=== PATIENT | female | born 1990 | race Caucasian/White ===

== ENCOUNTER 2016-09-03 09:18 | Emergency (ER) | payer OTHER ==
[2016-09-03 09:28] VITALS: RESP 15
--- NOTE | 2016-09-03 09:43 | ED ---
General Adult HPI - General Chief complaint: Urogenital Stated complaint: ovary pain Time Seen by Provider: 09/03/16 09:29 Source: patient, RN notes reviewed Mode of arrival: ambulatory Limitations: no limitations - History of Present Illness Initial comments: Patient 26-year-old female who presents emergency room today with a chief complaint of lower pelvic pain that started approximately 2 hours ago. She states she woke up she was getting up moving around she began feeling increased "ovary pain". She states it wraps around to her back bilaterally. Reminds her of labor pains. She states she is not that she knows of. She states she had a normal menstrual cycle approximately a week ago. Denies any vaginal bleeding or discharge at this time. States pain has improved on its own without any medications. Currently rates 4/5. Patient denies any recent fever, chills, shortness of breath, chest pain, back pain, nausea or vomiting, numbness or tingling, dysuria or hematuria, constipation or diarrhea, headaches or visual changes, or any other complaints. - Related Data Home Medications Medication Instructions Recorded Confirmed Multivitamins, Thera [Multivitamin 1 tab PO DAILY 09/03/16 09/03/16 (formulary)] Allergies Allergy/AdvReac Type Severity Reaction Status Date / Time cephalexin [From Keflex] Allergy Rash/Hives Verified 09/03/16 10:54 Review of Systems ROS Statement: Those systems with pertinent positive or pertinent negative responses have been documented in the HPI. ROS Other: All systems not noted in ROS Statement are negative. Past Medical History Past Medical History: No Reported History History of Any Multi-Drug Resistant Organisms: None Reported Past Surgical History: Appendectomy Past Psychological History: No Psychological Hx Reported Smoking Status: Never smoker Past Alcohol Use History: None Reported Past Drug Use History: None Reported General Exam - General Exam Comments Initial Comments: General: The patient is awake and alert, in no distress, and does not appear acutely ill. Eye: Pupils are equal, round and reactive to light, extra-ocular movements are intact. No nystagmus. There is normal conjunctiva bilaterally. No signs of icterus. Ears, nose, mouth and throat: There are moist mucous membranes and no oral lesions. Neck: The neck is supple, there is no tenderness or JVD. Cardiovascular: There is a regular rate and rhythm. No murmur, rub or gallop is appreciated. Respiratory: Lungs are clear to auscultation, respirations are non-labored, breath sounds are equal. No wheezes, stridor, rales, or rhonchi. Gastrointestinal: Soft, non-distended, without masses or organomegaly noted. Mild tenderness in the left lower quadrant. There is no rebound or guarding present. No CVA tenderness. Bowel sounds are unremarkable. Musculoskeletal: Normal ROM, no tenderness. Strength 5/5. Sensation intact. Pulses equal bilaterally 2+. Neurological: A&O x 3. CN II-XII intact, There are no obvious motor or sensory deficits. Coordination appears grossly intact. Speech is normal. Skin: Skin is warm and dry and no rashes or lesions are noted. Psychiatric: Cooperative, appropriate mood & affect, normal judgment. Limitations: no limitations Course Vital Signs 09/03/16 09:21 Temperature 98.0 F Pulse Rate 91 Respiratory 15 Rate Blood Pressure 101/73 O2 Sat by Pulse 97 Oximetry Medical Decision Making - Medical Decision Making Patient reexamined at this time shows no signs of distress. His ultrasound shows no acute abnormalities. Patient's labs unremarkable. Patient resting comfortable has not needed pain medicine here the emergency room currently rates a 4/5. She does provide further information stating that she does have some adjustment issues with her hips and had pain recently in her back. She states that this time the pain is radiating more to the back tenderness to the abdomen and is wondering if this is associated. She states she does have an appointment with her chiropractor this afternoon. Options were discussed with patient about a pelvic exam and further workup for STDs. She states she is not worried about any STDs and has declined pelvic here in the emergency room. Patient will be discharged home advised use ibuprofen as needed for pain and follow-up with her [facility]. Advised return if any symptoms increase or worsen or for any other concerns. - Lab Data Result diagrams: 09/03/16 09:51 09/03/16 09:51 Lab Results 09/03/16 09/03/16 09/03/16 Range/Units 09:51 09:51 09:51 WBC 4.7 (3.8-10.6) k/uL RBC 4.96 (3.80-5.40) m/uL Hgb 14.7 (11.4-16.0) gm/dL Hct 41.0 (34.0-46.0) % MCV 82.6 (80.0-100.0) fL MCH 29.5 (25.0-35.0) pg MCHC 35.8 (31.0-37.0) g/dL RDW 12.4 (11.5-15.5) % Plt Count 303 (150-450) k/uL Neutrophils % 58 % Lymphocytes % 31 % Monocytes % 7 % Eosinophils % 2 % Basophils % 1 % Neutrophils # 2.7 (1.3-7.7) k/uL Lymphocytes # 1.5 (1.0-4.8) k/uL Monocytes # 0.3 (0-1.0) k/uL Eosinophils # 0.1 (0-0.7) k/uL Basophils # 0.0 (0-0.2) k/uL Sodium (137-145) mmol/L Potassium (3.5-5.1) mmol/L Chloride (98-107) mmol/L Carbon Dioxide (22-30) mmol/L Anion Gap mmol/L BUN (7-17) mg/dL Creatinine (0.52-1.04) mg/dL Est GFR (MDRD) Af Amer (>60 ml/min/1.73 sqM) Est GFR (MDRD) Non-Af (>60 ml/min/1.73 sqM) Glucose (74-99) mg/dL Calcium (8.4-10.2) mg/dL Total Bilirubin (0.2-1.3) mg/dL AST (14-36) U/L ALT (9-52) U/L Alkaline Phosphatase (38-126) U/L Total Protein (6.3-8.2) g/dL Albumin (3.5-5.0) g/dL Urine Color Light Yellow Urine Appearance Clear (Clear) Urine pH 7.0 (5.0-8.0) Ur Specific [place] 1.014 (1.001-1.035) Urine Protein Negative (Negative) Urine Glucose (UA) Negative (Negative) Urine Ketones Negative (Negative) Urine Blood Negative (Negative) Urine Nitrite Negative (Negative) Urine Bilirubin Negative (Negative) Urine Urobilinogen <2.0 (<2.0) mg/dL Ur Leukocyte Esterase Moderate H (Negative) Urine WBC 1 (0-5) /hpf Ur Squamous Epith Cells 4 (0-4) /hpf Urine Bacteria Rare H (None) /hpf Urine Mucus Rare H (None) /hpf Urine HCG, Qual Not Detected (Not Detectd) 09/03/16 Range/Units 09:51 WBC (3.8-10.6) k/uL RBC (3.80-5.40) m/uL Hgb (11.4-16.0) gm/dL Hct (34.0-46.0) % MCV (80.0-100.0) fL MCH (25.0-35.0) pg MCHC (31.0-37.0) g/dL RDW (11.5-15.5) % Plt Count (150-450) k/uL Neutrophils % % Lymphocytes % % Monocytes % % Eosinophils % % Basophils % % Neutrophils # (1.3-7.7) k/uL Lymphocytes # (1.0-4.8) k/uL Monocytes # (0-1.0) k/uL Eosinophils # (0-0.7) k/uL Basophils # (0-0.2) k/uL Sodium 141 (137-145) mmol/L Potassium 4.1 (3.5-5.1) mmol/L Chloride 104 (98-107) mmol/L Carbon Dioxide 26 (22-30) mmol/L Anion Gap 11 mmol/L BUN 15 (7-17) mg/dL Creatinine 0.52 (0.52-1.04) mg/dL Est GFR (MDRD) Af Amer >60 (>60 ml/min/1.73 sqM) Est GFR (MDRD) Non-Af >60 (>60 ml/min/1.73 sqM) Glucose 84 (74-99) mg/dL Calcium 9.9 (8.4-10.2) mg/dL Total Bilirubin 0.8 (0.2-1.3) mg/dL AST 21 (14-36) U/L ALT 27 (9-52) U/L Alkaline Phosphatase 58 (38-126) U/L Total Protein 8.0 (6.3-8.2) g/dL Albumin 4.8 (3.5-5.0) g/dL Urine Color Urine Appearance (Clear) Urine pH (5.0-8.0) Ur Specific [place] (1.001-1.035) Urine Protein (Negative) Urine Glucose (UA) (Negative) Urine Ketones (Negative) Urine Blood (Negative) Urine Nitrite (Negative) Urine Bilirubin (Negative) Urine Urobilinogen (<2.0) mg/dL Ur Leukocyte Esterase (Negative) Urine WBC (0-5) /hpf Ur Squamous Epith Cells (0-4) /hpf Urine Bacteria (None) /hpf Urine Mucus (None) /hpf Urine HCG, Qual (Not Detectd) Disposition Clinical Impression: Abdominal pain Disposition: HOME SELF-CARE Condition: Good Instructions: Abdominal Pain (ED) Additional Instructions: Please use ibuprofen as discussed. Please follow-up with [facility]/family doctor in the next 2 days of symptoms have not improved. Please return to emergency room if the symptoms increase or worsen or for any other concerns. Referrals: Ernesto Pittman DO [Primary Care Provider] - 1-2 days Time of Disposition: 11:04
[2016-09-03] MEDS: SODIUM CHLORIDE 0.9% 1,000 ML IV STA (09:51)
[2016-09-03 10:12] LABS: Appearance,Urine Clear (Clear); Bacteria,Urine Rare /hpf; Bilirubin,Urine Negative (Negative); Glucose,Urine (UA) Negative (Negative); Ketones,Urine Negative (Negative); Leukocyte Esterase,Urine Moderate (Negative); Mucus,Urine Rare /hpf; Nitrite,Urine Negative (Negative); Particle Count 3351; Protein,Urine Negative (Negative); Specific Gravity,Urine 1.014 (1.001-1.035); Squamous Epithelial Cell,Urine 4 /hpf (0-4); UA Billing (MACRO vs. MICRO) MICRO; Urobilinogen,Urine <2.0 mg/dL (<2.0); WBC,Urine 1 /hpf (0-5)
[2016-09-03 10:14] LABS: Basophils % (A) 1 %; CH 29.4; CHCM 35.7; Eosinophils # (A) 0.1 k/uL (0-0.7); Eosinophils % (A) 2 %; HDW 2.61; HGB 14.7 gm/dL (11.4-16.0); Luc # (Auto) 0.11; Luc % (Auto) 2; Lymphocytes # (A) 1.5 k/uL (1.0-4.8); Lymphocytes % (A) 31 %; MCH 29.5 pg (25.0-35.0); MCHC 35.8 g/dL (31.0-37.0); MCV 82.6 fL (80.0-100.0); Mean Platelet Volume 6.8; Monocytes # (A) 0.3 k/uL (0-1.0); Monocytes % (A) 7 %; Neutrophils # (A) 2.7 k/uL (1.3-7.7); Neutrophils % (A) 58 %; RBC 4.96 m/uL (3.80-5.40); RDW 12.4 % (11.5-15.5); WBC 4.7 k/uL (3.8-10.6); WBC (Perox) 4.49
[2016-09-03 10:31] LABS: ALT 27 U/L (9-52); AST 21 U/L (14-36); Alkaline Phosphatase 58 U/L (38-126); Anion Gap 11 mmol/L; Blood Urea Nitrogen 15 mg/dL (7-17); Calcium 9.9 mg/dL (8.4-10.2); Carbon Dioxide 26 mmol/L (22-30); Chloride 104 mmol/L (98-107); Glucose 84 mg/dL (74-99); Non-African American GFR(MDRD) >60 (>60 ml/min/1.73 sqM); Potassium 4.1 mmol/L (3.5-5.1); Sodium 141 mmol/L (137-145); Total Bilirubin 0.8 mg/dL (0.2-1.3)
--- NOTE | 2016-09-03 10:49 | US ---
EXAMINATION TYPE: US transvaginal DATE OF EXAM: 09/03/2016 COMPARISON: NONE CLINICAL HISTORY: bilateral pelvic pain that was worse this morning and has somewhat subsided. TECHNIQUE: Transvaginal (TV) Date of LMP: 08/14/16 EXAM MEASUREMENTS: Uterus: 8.7 x 4.5 x 5.8 cm Endometrial Stripe: 1.2 cm Right Ovary: 3.1 x 2.3 x 2.3 cm Left Ovary: 2.0 x 2.0 x 2.2 cm 1. Uterus: Anteverted, patient had one previous and has no knowledge of bicornuate uterus, however transverse images appear this way 2. Endometrium: wnl 3. Right Ovary: small amount of ff adjacent to ovary, 1 cm dominant follicle or small ovarian cyst n oted 4. Left Ovary: wnl Spectral, color and waveform doppler imaging shows good arterial and venous flow within the ovaries ; there is no evidence for ovarian torsion. 5. Bilateral Adnexa: wnl 6. Posterior cul-de-sac: wnl IMPRESSION: 1. 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 2. Incidental note made of a small amount of fluid adjacent to the right ovary with a 1 cm right sahil nant follicle or small ovarian cyst.
[2016-09-03 11:43] VITALS: BP 115/57; PULSE 80; TEMP 98.2
== END 2016-09-03 11:52 | disposition home or self-care (01) ==
LOC: EC 09:18
DX: R10.2 Pelvic and perineal pain (principal); M54.5 Low back pain; Z79.899 Other long term (current) drug therapy; Z88.1 Allergy status to other antibiotic agents; Z90.49 Acquired absence of other specified parts of digestive tract
CPT/HCPCS: 36415; 76830; 80053; 81001; 81025; 85025; 93975; 96360; 96361; 99284

== ENCOUNTER → 2019-10-27 | Outpatient (CLI) | payer OTHER ==
--- NOTE | 2019-10-27 13:38 | US ---
EXAMINATION TYPE: Transabdominal DATE OF EXAM: 10/27/2019 1:30 PM COMPARISON: NONE CLINICAL HISTORY: R68.89 CRAMPING. Pt states cramping x 1 week EXAM PERFORMED: Transabdominal (TA) EXAM MEASUREMENTS: GESTATIONAL AGE / DATING Physician Established: Not yet established Dates by LMP: (8 weeks/6 days) EDC: 06/01/2020 Dates by First Scan: No prior Dates by Current Scan for: (9 weeks/1 days) EDC: 05/30/2020 MATERNAL ANATOMY Uterus: 11.1 x 6.3 x 7.7 cm Right Ovary: 3.0 x 1.5 x 2.0 cm Left Ovary: 3.4 x 2.1 x 3.1 cm Post CDS / Adnexa: wnl Presence of free fluid: No Presence of corpus luteal cyst: Left Ovary= 2.3 x 1.8 x 1.9 cm Presence of subchorionic bleed: No GESTATION / SURVEY CRL: 2.3 cm (9 weeks/1 days) MSD: wnl Yolk Sac (normal less than 6mm): 3mm Heart Rate: 172 bpm Rhythm: Normal IUP: Viable IUP Date of LMP: 08/26/2019 IMPRESSION: Viable 9 weeks 1 day with a heart rate 172 bpm.
== END | disposition home or self-care (01) ==
LOC: RADUSWWP 12:41
PROVIDERS: ATTEND Obstetrics & Gynecology
DX: R68.89 Other general symptoms and signs (principal); Z3A.09 9 weeks gestation of pregnancy
CPT/HCPCS: 76801

== ENCOUNTER 2019-12-01 17:20 | Emergency (ER) | payer OTHER ==
[2019-12-01 17:39] VITALS: BP 105/72; PULSE 82; RESP 18; TEMP 98.5
[2019-12-01 18:35] LABS: Appearance,Urine Clear (Clear); Bilirubin,Urine Negative (Negative); Blood,Urine Negative (Negative); Color,Urine Light Yellow; Glucose,Urine (UA) Negative (Negative); Ketones,Urine 1+ (Negative); Leukocyte Esterase,Urine Small (Negative); Mucus,Urine Rare /hpf; Nitrite,Urine Negative (Negative); PH, Urine 8.5 (5.0-8.0); Protein,Urine 1+ (Negative); RBC,Urine 2 /hpf (0-5); Specific Gravity,Urine 1.013 (1.001-1.035); Squamous Epithelial Cell,Urine 6 /hpf (0-4); Urobilinogen,Urine <2.0 mg/dL (<2.0); WBC,Urine 26 /hpf (0-5)
--- NOTE | 2019-12-01 18:41 | ED ---
Female Urogenital HPI - General Chief complaint: Urogenital Stated complaint: 14wks preg/uti Time Seen by Provider: 12/01/19 17:44 Source: patient, family, RN notes reviewed Mode of arrival: ambulatory Limitations: no limitations - History of Present Illness Initial comments: 29-year-old female presents emergency Department chief complaint of dysuria. Patient states that this started today. Patient states it hurts every time she urinates. Denies any vaginal bleeding or vaginal discharge. Patient is 14 weeks patient has a follow-up with her [facility] Dr. Maria. Patient denies any fevers or chills no flank pain no hematuria noted. - Related Data Home Medications Medication Instructions Recorded Confirmed Multivitamins, Thera [Multivitamin 1 tab PO DAILY 09/03/16 09/03/16 (formulary)] Previous Rx's Medication Instructions Recorded Nitrofurantoin Monohyd/M-Cryst 100 mg PO Q12HR #14 cap 12/01/19 [Macrobid] Allergies Allergy/AdvReac Type Severity Reaction Status Date / Time cephalexin [From Keflex] Allergy Rash/Hives Verified 12/01/19 17:38 Review of Systems ROS Statement: Those systems with pertinent positive or pertinent negative responses have been documented in the HPI. ROS Other: All systems not noted in ROS Statement are negative. Past Medical History Past Medical History: No Reported History History of Any Multi-Drug Resistant Organisms: None Reported Past Surgical History: Appendectomy Past Psychological History: No Psychological Hx Reported Smoking Status: Never smoker Past Alcohol Use History: None Reported Past Drug Use History: None Reported General Exam General appearance: alert, in no apparent distress Head exam: Present: atraumatic, normocephalic, normal inspection Respiratory exam: Present: normal lung sounds bilaterally. Absent: respiratory distress, wheezes, rales, rhonchi, stridor Cardiovascular Exam: Present: regular rate, normal rhythm, normal heart sounds. Absent: systolic murmur, diastolic murmur, rubs, gallop, clicks GI/Abdominal exam: Present: soft, normal bowel sounds. Absent: distended, tenderness, guarding, rebound, rigid Back exam: Absent: CVA tenderness (R), CVA tenderness (L) Course Vital Signs 12/01/19 17:34 Temperature 98.5 F Pulse Rate 82 Respiratory 18 Rate Blood Pressure 105/72 O2 Sat by Pulse 100 Oximetry Medical Decision Making - Medical Decision Making Patient has evidence of urinary tract infection. Patient we discharged on antibiotics. She is advised to contact her [facility] for close follow-up return parameters were discussed. - Lab Data Lab Results 12/01/19 Range/Units 17:47 Urine Color Light Yellow Urine Appearance Clear (Clear) Urine pH 8.5 H (5.0-8.0) Ur Specific [place] 1.013 (1.001-1.035) Urine Protein 1+ H (Negative) Urine Glucose (UA) Negative (Negative) Urine Ketones 1+ H (Negative) Urine Blood Negative (Negative) Urine Nitrite Negative (Negative) Urine Bilirubin Negative (Negative) Urine Urobilinogen <2.0 (<2.0) mg/dL Ur Leukocyte Esterase Small H (Negative) Urine RBC 2 (0-5) /hpf Urine WBC 26 H (0-5) /hpf Ur Squamous Epith Cells 6 H (0-4) /hpf Urine Mucus Rare H (None) /hpf Disposition Clinical Impression: Urinary tract infection Disposition: HOME SELF-CARE Condition: Stable Instructions (If sedation given, give patient instructions): Urinary Tract Infection in (ED) Additional Instructions: Please return to the Emergency Department if symptoms worsen or any other concerns. Prescriptions: Nitrofurantoin Monohyd/M-Cryst [Macrobid] 100 mg PO Q12HR #14 cap Is patient prescribed a controlled substance at d/c from ED?: No Referrals: Ernesto Pittman DO [Primary Care Provider] - 1-2 days Time of Disposition: 18:38
== END 2019-12-01 19:09 | disposition home or self-care (01) ==
LOC: EC 17:20
DX: O23.42 Unspecified infection of urinary tract in pregnancy, second trimester (principal); Z88.1 Allergy status to other antibiotic agents; Z3A.14 14 weeks gestation of pregnancy
CPT/HCPCS: 81001; 87086; 99283

== ENCOUNTER 2020-06-05 06:02 | Inpatient (IN) | payer BC, OTHER ==
[2020-06-05] MEDS ORDERED: CARBOPROST TROMETHAMINE 250 MCG/ML 1 ML AMP IM PRN (06:26)
[2020-06-05] MEDS ORDERED: LIDOCAINE 0.5% (PF) 5 MG/ML (50 ML SDV) SQ PRN (06:26)
[2020-06-05] MEDS ORDERED: OXYTOCIN 10 UNIT/ML 1 ML VIAL IM PRN (06:26)
[2020-06-05] MEDS ORDERED: TERBUTALINE 1 MG/ML VIAL SQ PRN (06:26)
[2020-06-05] MEDS ORDERED: METHYLERGONOVINE 0.2 MG/ML 1 ML AMP IM PRN (06:26)
[2020-06-05] MEDS ORDERED: OXYTOCIN 30 UNITS/500 ML NS 30 UNIT in SALINE 1 500ML.BAG IV SCH (06:30)
[2020-06-05 06:50] LABS: Basophils % (A) 0 %; Eosinophils # (A) 0.1 k/uL (0-0.7); Eosinophils % (A) 1 %; HGB 11.8 gm/dL (11.4-16.0); Lymphocytes # (A) 1.5 k/uL (1.0-4.8); Lymphocytes % (A) 15 %; MCH 28.5 pg (25.0-35.0); MCHC 33.6 g/dL (31.0-37.0); MCV 84.6 fL (80.0-100.0); Mean Platelet Volume 8.3; Monocytes # (A) 0.8 k/uL (0-1.0); Monocytes % (A) 8 %; Neutrophils # (A) 7.7 k/uL (1.3-7.7); Neutrophils % (A) 76 %; Platelet Count 253 k/uL (150-450); RBC 4.14 m/uL (3.80-5.40); RDW 14.2 % (11.5-15.5); WBC 10.2 k/uL (3.8-10.6)
[2020-06-05] MEDS: LACTATED RINGERS 1,000 ML IV SCH (07:07)
[2020-06-05] MEDS ORDERED: BUTORPHANOL 1 MG/ML 1 ML VIAL IV PRN (07:42)
[2020-06-05] MEDS ORDERED: BENZOCAINE/MENTHOL SPRAY 1 GM/SPRAY AEROSOL TOPICAL PRN (12:56)
[2020-06-05] MEDS ORDERED: LANOLIN CREAM 5 GM TUBE TOPICAL PRN (12:56)
[2020-06-05] MEDS ORDERED: diphenhydrAMINE 25 MG CAP PO PRN (12:56)
[2020-06-05] MEDS ORDERED: ZOLPIDEM 5 MG TAB PO PRN (12:56)
[2020-06-05] MEDS ORDERED: SIMETHICONE 80 MG CHEWABLE PO PRN (12:56)
[2020-06-05] MEDS ORDERED: ACETAMINOPHEN TAB 325 MG TAB PO PRN (12:56)
[2020-06-05] MEDS ORDERED: HYDROCORTISONE 2.5% RECTAL CREAM 30 GM TUBE RECTAL PRN (12:56)
[2020-06-05] MEDS ORDERED: diphenhydrAMINE 50 MG/ML 1 ML VIAL IVP PRN ×2 (12:56)
[2020-06-05] MEDS ORDERED: diphenhydrAMINE 50 MG CAP PO PRN (12:56)
[2020-06-05] MEDS: IBUPROFEN 600 MG TAB PO SCH ×2 (13:37→20:59)
[2020-06-05 14:28] VITALS: RESP 16
[2020-06-05] MEDS: SENNOSIDES-DOCUSATE SODIUM 1 EACH TAB PO SCH (20:59)
[2020-06-06] MEDS: LACTATED RINGERS 1,000 ML IV SCH (01:12)
[2020-06-06] MEDS: IBUPROFEN 600 MG TAB PO SCH ×3 (03:32→15:13)
[2020-06-06 07:27] VITALS: BP 97/56; PULSE 81; TEMP 98
[2020-06-06] MEDS: SENNOSIDES-DOCUSATE SODIUM 1 EACH TAB PO SCH (07:29)
--- NOTE | 2020-06-06 08:09 | P.HPOB ---
History of Present Illness H&P Date: 06/05/20 Chief Complaint: INduction of labor 30-year-old presents at 40 weeks and 4 days for induction of labor. Her cervix was 2 cm dilated, 70% effaced, and -2 station. She is adilson irregularly. heart tones 135 with moderate variability and reactive. Review of Systems All systems: negative Constitutional: Denies chills, Denies fever Eyes: denies blurred vision, denies pain Ears, nose, mouth and throat: Denies headache, Denies sore throat Cardiovascular: Denies chest pain, Denies shortness of breath Respiratory: Denies cough Gastrointestinal: Denies abdominal pain, Denies diarrhea, Denies nausea, Denies vomiting Genitourinary: Denies dysuria, Denies hematuria Musculoskeletal: Denies myalgias Integumentary: Denies pruritus, Denies rash Neurological: Denies numbness, Denies weakness Psychiatric: Denies anxiety, Denies depression Endocrine: Denies fatigue, Denies weight change Past Medical History Past Medical History: No Reported History Additional Past Medical History / Comment(s): Obstetric history: She has had 2 previous vaginal deliveries. Blood type is B+, amylase negative, rubella nonimmune, hepatitis B negative, GBS negative, HIV nonreactive. History of Any Multi-Drug Resistant Organisms: None Reported Past Surgical History: Appendectomy Past Anesthesia/Blood Transfusion Reactions: No Reported Reaction Past Psychological History: No Psychological Hx Reported Smoking Status: Never smoker Past Alcohol Use History: None Reported Past Drug Use History: None Reported - Past Family History Father Family Medical History: No Reported History Medications and Allergies Home Medications Medication Instructions Recorded Confirmed Type Multivitamins, Thera [Multivitamin 1 tab PO DAILY 09/03/16 06/05/20 History (formulary)] Allergies Allergy/AdvReac Type Severity Reaction Status Date / Time cephalexin [From Keflex] Allergy Rash/Hives Verified 06/05/20 06:26 Exam Osteopathic Statement: *. No significant issues noted on an osteopathic structural exam other than those noted in the History and Physical/Consult. Vital Signs Temp Pulse Resp BP Pulse Ox 06/06/20 07:27 98.0 F 81 16 97/56 06/06/20 04:00 98.4 F 70 16 95/54 97 06/06/20 00:00 98.3 F 70 16 102/61 98 06/05/20 20:00 98.1 F 86 16 110/56 97 06/05/20 16:00 96.8 F L 70 16 98/58 98 06/05/20 13:50 96.7 F L 78 16 114/57 99 06/05/20 13:20 88 18 94/60 99 06/05/20 12:50 70 16 98/54 99 06/05/20 12:35 72 17 92/51 98 06/05/20 12:20 71 16 89/54 98 06/05/20 12:05 93 16 89/59 99 06/05/20 11:50 96.7 F L 86 18 93/57 99 Intake and Output 06/05/20 06/06/20 06/06/20 22:59 06:59 14:59 Intake Total 600 Balance 600 Intake: Oral 600 Other: # Voids 1 1 2 Heart: Regular rate and rhythm Lungs: Clear to auscultation bilaterally Abdomen: Soft, nontender Extremities: Negative Homans sign Results Result Diagrams: 06/05/20 06:36 Assessment and Plan (1) Encounter for elective induction of labor Current Visit: Yes Status: Acute Code(s): Z34.90 - ENCNTR FOR SUPRVSN OF NORMAL , UNSP, UNSP TRIMESTER SNOMED Code(s): 152475651 Plan: 1. Induction of labor with amniotomy and Pitocin 2. Anticipate normal vaginal delivery
--- NOTE | 2020-06-06 08:10 | P.PROBDLV ---
Vaginal Delivery Note - . Vaginal Delivery Note: 30-year-old presents at 40 weeks and 4 days for induction of labor. Her cervix was 2 cm dilated, 70% effaced, and -2 station. She is adilson irregularly. heart tones 135 with moderate variability and reactive. Pitocin was started. Amniotomy performed at 6:50 AM and clear fluid noted. Her cervix progressed to complete by 11:25 AM. She pushed, delivered a viable male infant over intact perineum under epidural anesthesia at 11:41 AM. Head delive red OA, nuchal cord 1 easily reduced, anterior shoulder delivered gentle downward guidance followed by posterior shoulder and rest of body. Nose and mouth bulb suctioned, cord clamped and cut, infant placed mother's abdomen. Apgars 8, 9, weight 9 lbs. 4 oz. Placenta delivered spontaneously, intact with three-vessel cord at 11:43 AM. Vagina, cervix, perineum inspected. No lacerations noted. Estimated blood loss 150 mL. Mother and baby in stable condition.
--- NOTE | 2020-06-06 08:12 | P.DS ---
Providers Date of admission: 06/05/20 06:02 Expected date of discharge: 06/06/20 Attending physician: Sherry Maria Primary care physician: Stated None - Discharge Diagnosis(es) (1) Encounter for elective induction of labor Current Visit: Yes Status: Resolved (2) Normal vaginal delivery Current Visit: Yes Status: Acute Hospital Course: Patient presented for induction of labor. She underwent a normal vaginal delivery. Her course uncomplicated. Denies nausea, vomiting, chest pain, shortness of breath or calf pain. Her lochia is decreasing. She'll be discharged home day #1 in stable condition to follow-up with me in 6 weeks. Plan - Discharge Summary New Discharge Prescriptions: New Ibuprofen [Motrin] 600 mg PO Q6HR PRN #30 tab PRN Reason: Mild Pain Or Fever >= 100.5 No Action Multivitamins, Thera [Multivitamin (formulary)] 1 tab PO DAILY Discharge Medication List Multivitamins, Thera [Multivitamin (formulary)] 1 tab PO DAILY 09/03/16 [History] Ibuprofen [Motrin] 600 mg PO Q6HR PRN #30 tab 06/06/20 [Rx] Follow up Appointment(s)/Referral(s): Sherry Maria DO [Doctor of Osteopathic Medicine] - 6 Weeks Discharge Disposition: HOME SELF-CARE
== END 2020-06-06 15:30 | disposition home or self-care (01) | DRG 807 ==
LOC: 4FBP 06:02
PROVIDERS: ADMIT Obstetrics & Gynecology; ATTEND Obstetrics & Gynecology
PROC: 10E0XZZ Delivery of Products of Conception, External Approach (ICD-10-PCS; principal; 2020-06-05)
PROC: 3E033VJ Introduction of Other Hormone into Peripheral Vein, Percutaneous Approach (ICD-10-PCS; 2020-06-05)
DX: O69.81X0 Labor and delivery complicated by cord around neck, without compression, not applicable or unspecified (principal); Z37.0 Single live birth; Z3A.40 40 weeks gestation of pregnancy
CPT/HCPCS: 85025; 86850; 86900; 86901

== ENCOUNTER 2021-12-26 17:48 | Outpatient (CLI) | payer BC, OTHER ==
[2021-12-26 18:20] LABS: Appearance,Urine Clear (Clear); Bacteria,Urine Many /hpf; Bilirubin,Urine Negative (Negative); Blood,Urine Negative (Negative); Budding Yeast,Urine Occasional /hpf; Color,Urine Colorless; Glucose,Urine (UA) Negative (Negative); Hyaline Casts,Urine 1 /lpf (0-2); Ketones,Urine Negative (Negative); Leukocyte Esterase,Urine Small (Negative); Nitrite,Urine Negative (Negative); PH, Urine 7.5 (5.0-8.0); Protein,Urine Negative (Negative); RBC,Urine <1 /hpf (0-5); Specific Gravity,Urine 1.006 (1.001-1.035); Squamous Epithelial Cell,Urine 4 /hpf (0-4); Urobilinogen,Urine <2.0 mg/dL (<2.0); WBC,Urine 2 /hpf (0-5)
[2021-12-26 19:26] VITALS: BP 112/69; PULSE 93; RESP 16; TEMP 98.1
--- NOTE | 2021-12-27 17:35 | P.MSEPDOC ---
Presenting Problems - Arrival Data Date of Arrival on Unit: 12/26/21 Time of Arrival on Unit: 19:10 Mode of Transport: Ambulatory - Complaint OB-Reason for Admission/Chief Complaint: Pain Comment: pain in back lower for 2 days. last couple hours radiating to mid abd. hx of labor. wanted to make sure it was not labor Medical History - Information : 6 Para: 3 Term: 3 Abortions: Spontaneous or Elective: 2 Number of Living Children: 3 - Gestational Age Gestational Age by DARREL (wks/days): 32 Weeks and 6 Days Review of Systems - Review of Systems Constitutional: No problems Breast: No problems ENT: No problems Cardiovascular: No problems Respiratory: No problems Gastrointestinal: No problems Genitourinary: No problems Musculoskeletal: No problems Neurological: No problems Skin: No problems Vital Signs - Temperature Temperature: 98.1 F Temperature Source: Oral - Pulse Radial Pulse Rate: 93 Pulse Assessment Method: Automatic Cuff - Respirations Respiratory Rate: 16 Oxygen Delivery Method: Room Air O2 Sat by Pulse Oximetry: 99 - Blood Pressure Right Arm Blood Pressure: 112/69 Blood Pressure Mean: 83 Blood Pressure Source: Automatic Cuff Medical Screen Scoring - Cervical Exam Dilation (cm): 0 Effacement (%): 0 Membranes: Intact - Uterine Contractions Intensity: Absent - Assessment - Baby A Baseline FHR: 130 Heart Rate - NICHD Category: Category I (Normal) NST: Reactive Physician Notification - Physician Notified Physician Notified Date: 12/26/21 Physician Notified Time: 17:00 Physician: Sherry Maria Order Received: Yes (discharge home with instructions) Maternal Triage Index - Scheduled/Requesting Priority 5 Scheduled/Requesting Priority 5: Yes Criteria Met for Priority 5: low back discomfort. last 2 days. last 2 hours ratiating to mid front. ? contx. history of labor with other pregs Disposition - Disposition OB Disposition: Physician follow up in office, Discharge to home, Written follow up instructions reviewed Discharge Date: 12/26/21 Discharge Time: 19:15 I agree with the RN Medical Screening Exam: Yes Case reviewed; plan agreed upon as documented in EMR&OBIX.: Yes Diagnosis: LOW BACK PAIN, UNSPECIFIED
== END 2021-12-26 19:15 | disposition home or self-care (01) ==
LOC: FBPOP 17:48
PROVIDERS: ATTEND Obstetrics & Gynecology
DX: O99.891 Other specified diseases and conditions complicating pregnancy (principal); Z3A.32 32 weeks gestation of pregnancy; Z88.8 Allergy status to other drugs, medicaments and biological substances
CPT/HCPCS: 59025; 81001; 87086; 99213

== ENCOUNTER 2022-02-23 06:08 | Inpatient (IN) | payer BC, OTHER ==
[2022-02-23] MEDS ORDERED: LIDOCAINE 0.5% (PF) 5 MG/ML (50 ML SDV) SQ PRN (06:21)
[2022-02-23] MEDS ORDERED: TERBUTALINE 1 MG/ML VIAL SQ PRN (06:21)
[2022-02-23] MEDS: LACTATED RINGERS 1,000 ML IV SCH ×2 (06:44→11:41)
[2022-02-23 07:03] LABS: Basophils % (A) 0 %; Eosinophils # (A) 0.1 k/uL (0-0.7); Eosinophils % (A) 1 %; HCT 36.3 % (34.0-46.0); Lymphocytes # (A) 1.5 k/uL (1.0-4.8); Lymphocytes % (A) 18 %; MCH 31.5 pg (25.0-35.0); MCHC 35.9 g/dL (31.0-37.0); MCV 87.7 fL (80.0-100.0); Mean Platelet Volume 9.2; Monocytes # (A) 0.6 k/uL (0-1.0); Monocytes % (A) 7 %; Neutrophils % (A) 71 %; Platelet Count 212 k/uL (150-450); RBC 4.14 m/uL (3.80-5.40); RDW 13.3 % (11.5-15.5); WBC 8.4 k/uL (3.8-10.6)
[2022-02-23] MEDS: OXYTOCIN 30 UNITS/500 ML NS 30 UNIT in SALINE 1 500ML.BAG IV SCH ×2 (07:10→18:40)
--- NOTE | 2022-02-23 08:34 | P.HPOB ---
History of Present Illness H&P Date: 02/23/22 Chief Complaint: Induction of labor 31-year-old G3 6 P3 presents at 41 weeks for induction of labor. Her cervix is 2 cm dilated, 70% effaced, -2 station. She is adilson irregularly. heart tones 135 with moderate variability and reactive. Review of Systems All systems: negative Constitutional: Denies chills, Denies fever Eyes: denies blurred vision, denies pain Ears, nose, mouth and throat: Denies headache, Denies sore throat Cardiovascular: Denies chest pain, Denies shortness of breath Respiratory: Denies cough Gastrointestinal: Denies abdominal pain, Denies diarrhea, Denies nausea, Denies vomiting Genitourinary: Denies dysuria, Denies hematuria Musculoskeletal: Denies myalgias Integumentary: Denies pruritus, Denies rash Neurological: Denies numbness, Denies weakness Psychiatric: Denies anxiety, Denies depression Endocrine: Denies fatigue, Denies weight change Past Medical History Past Medical History: No Reported History History of Any Multi-Drug Resistant Organisms: None Reported Past Surgical History: Appendectomy Past Anesthesia/Blood Transfusion Reactions: No Reported Reaction Past Psychological History: No Psychological Hx Reported Smoking Status: Never smoker Past Alcohol Use History: None Reported Past Drug Use History: None Reported - Past Family History Father Family Medical History: No Reported History Medications and Allergies Home Medications Medication Instructions Recorded Confirmed Type Multivitamins, Thera [Multivitamin 1 tab PO DAILY 09/03/16 02/23/22 History (formulary)] Allergies Allergy/AdvReac Type Severity Reaction Status Date / Time cephalexin [From Keflex] Allergy Rash/Hives Verified 02/23/22 06:20 Exam Osteopathic Statement: *. No significant issues noted on an osteopathic structural exam other than those noted in the History and Physical/Consult. Vital Signs Temp Pulse Resp BP 02/23/22 06:20 97.8 F 90 16 124/58 Intake and Output 02/22/22 02/23/22 02/23/22 22:59 06:59 14:59 Other: Weight 65.771 kg Heart: Regular rate and rhythm Lungs: Clear to auscultation bilaterally Abdomen: Soft, nontender Extremities: Negative Homans sign Results Result Diagrams: 02/23/22 06:21 Assessment and Plan (1) Encounter for induction of labor Current Visit: Yes Status: Acute Code(s): Z34.90 - ENCNTR FOR SUPRVSN OF NORMAL , UNSP, UNSP TRIMESTER SNOMED Code(s): 541091586 Plan: 1. Induction of labor with amniotomy and Pitocin 2. Anticipate normal vaginal delivery
[2022-02-23] MEDS: BUTORPHANOL 1 MG/ML 1 ML VIAL IV PRN ×2 (13:51→19:05)
[2022-02-23] MEDS ORDERED: ACETAMINOPHEN TAB 325 MG TAB PO PRN (16:10)
[2022-02-23] MEDS ORDERED: ZOLPIDEM 5 MG TAB PO PRN (16:10)
[2022-02-23] MEDS ORDERED: diphenhydrAMINE 25 MG CAP PO PRN (16:10)
[2022-02-23] MEDS ORDERED: diphenhydrAMINE 50 MG CAP PO PRN (16:10)
[2022-02-23] MEDS ORDERED: HYDROCORTISONE 2.5% RECTAL CREAM 30 GM TUBE RECTAL PRN (16:10)
[2022-02-23] MEDS ORDERED: diphenhydrAMINE 50 MG/ML 1 ML VIAL IVP PRN ×2 (16:10)
[2022-02-23] MEDS ORDERED: SIMETHICONE 80 MG CHEWABLE PO PRN (16:10)
[2022-02-23] MEDS ORDERED: LANOLIN CREAM 5 GM TUBE TOPICAL PRN (16:10)
[2022-02-23] MEDS ORDERED: BENZOCAINE/MENTHOL SPRAY 1 GM/SPRAY AEROSOL TOPICAL PRN (16:10)
[2022-02-23] MEDS: IBUPROFEN 600 MG TAB PO PRN (16:15)
[2022-02-23] MEDS ORDERED: OXYTOCIN 30 UNITS/500 ML NS 30 UNIT in SALINE 1 500ML.BAG IV SCH (16:15)
[2022-02-23] MEDS ORDERED: METHYLERGONOVINE 0.2 MG/ML 1 ML AMP IM ONE (19:05)
[2022-02-23] MEDS ORDERED: PROPOFOL 10 MG/ML 20 ML VIAL IV ONE (19:53)
[2022-02-23] MEDS ORDERED: SUCCINYLCHOLINE CHLORIDE 200 MG/10 ML VIAL IV ONE (19:53)
[2022-02-23] MEDS ORDERED: ALBUMIN HUMAN 5% (25gm) 500 ML VIAL IVPB ONE (19:53)
[2022-02-23] MEDS ORDERED: METHYLERGONOVINE 0.2 MG/ML 1 ML AMP ONE (19:53)
[2022-02-23] MEDS ORDERED: miSOPROStoL 200 MCG TAB PO STA (20:06)
[2022-02-23] MEDS ORDERED: ACETAMINOPHEN IV (For NPO) 1,000 MG in EMPTY BAG 1 BAG IVPB PRN (21:01)
--- NOTE | 2022-02-23 21:06 | P.PROBDLV ---
Vaginal Delivery Note - . Vaginal Delivery Note: 31-year-old G3 6 P3 presents at 41 weeks for induction of labor. Her cervix is 2 cm dilated, 70% effaced, -2 station. She is adilson irregularly. heart tones 135 with moderate variability and reactive. Pitocin was started. Amniotomy performed at 8:20 AM clear fluid noted. She soon became uncomfortable. Her cervix was completely dilated by 1520. She pushed, delivered a viable male over intact perineum at 1528. Head delivered OA, nuchal cord 1 easily reduced, anterior shoulder delivered gentle downward guidance followed by posterior shoulder and rest of body. Nose and mouth bulb suctioned, cord clamped and cut, placed mother's abdomen. Apgars 8, 9, weight 8 pounds 3.6 ounces. Placenta delivered spontaneously, intact with three-vessel cord at 1531. Vagina, cervix, and perineum were inspected. No lacerations noted. Estimated blood loss 150 mL. Mother and baby in stable condition.
--- NOTE | 2022-02-23 21:17 | P.OP ---
Date of Procedure: 02/23/22 Preoperative Diagnosis: 1. hemorrhage Postoperative Diagnosis: 1. hemorrhage 2. Uterine atony Procedure(s) Performed: Exam under anesthesia with uterine massage evacuation of clots and placement of a Bakri balloon Anesthesia: BETHANY Surgeon: Sherry Maria Estimated Blood Loss (ml): 300 IV fluids (ml): 1,750 Urine output (ml): 200 Pathology: none sent Condition: stable Disposition: floor Indications for Procedure: I was called to see the patient 4 hours after delivery. The nurse had noted that the uterus was firm throughout most of her recovery but she did have 2 episodes where she expressed 200 mL of blood clot each time. I advised her that if it happened again to call me and I would come to the hospital. She called me right back and said that the patient had been blood 500 ml more. I presented to the hospital and advised the patient that I believed her to have uterine atony, her is at bedside. She understood this to mean that the uterus was not clamping down around the blood vessels and she was bleeding. I did give her 1 dose of Stadol for pain control and then evacuated several clots. I then gave her 0.2 Methergine IM. This was another 500 mL. Within 10 minutes she filled the uterus again with another 500 mL the right expressed. I called for anesthesia to do an exam under anesthesia to see if there was any tears in the cervix or get her bleeding under control. At this point the patient had lost 1800 mL of blood. I advised the patient and her that I would like to order a unit of blood for her. The patient refused since that she would prefer not to have the blood because she is not sure if there is some of the coated vaccine in the blood. After thorough counseling with the patient, her and the patient's mother on the phone the patient did consent to have blood if her life. At this point anesthesia came in and gave her some albumin. Patient was consented for exam under anesthesia with possible repair of laceration and treatment of hemorrhage. Operative Findings: Atonic uterus. No lacerations noted Description of Procedure: Patient is taken the operating room where general anesthesia was obtained without difficulty. She is prepped and draped in normal sterile fashion dorsal lithotomy position, legs placed in the Kevin stirrups. Wilkins catheter was rea star. I evacuated more clots from her uterus and then looked around the outside of the cervix all throughout the vaginal vault. There were no lacerations noted. My thorough pelvic exam included manually examining the inside of the uterus. No lacerations were noted here either. The uterus was felt to be boggy. I placed 1000 g of Cytotec rectally. 10 minutes later, despite the medications and continued uterine massage, the patient was still having some atony in the lower uterine segment. I gave her another dose of Methergine 0.2 IM and then placed up a balloon in normal sterile fashion, filling the balloon with 400 mL of sterile fluid. I placed some sterile packing around this area. All instruments removed removed from the vagina. Patient tolerated the procedure well. Sponge initial counts correct 2. She was taken to recovery in stable condition.
[2022-02-23] MEDS: SENNOSIDES-DOCUSATE SODIUM 1 EACH TAB PO SCH (21:35)
[2022-02-23] MEDS: KETOROLAC 15 MG/ML 1 ML VIAL IVP SCH (22:08)
[2022-02-23 22:43] LABS: HCT 23.4 % (34.0-46.0); MCHC 34.3 g/dL (31.0-37.0); MCV 90.4 fL (80.0-100.0); Mean Platelet Volume 9.2; Platelet Count 178 k/uL (150-450); RBC 2.58 m/uL (3.80-5.40); WBC 11.8 k/uL (3.8-10.6)
[2022-02-24] MEDS: KETOROLAC 15 MG/ML 1 ML VIAL IVP SCH ×4 (04:10→23:45)
[2022-02-24 07:53] LABS: Basophils % (A) 0 %; Eosinophils # (A) 0.1 k/uL (0-0.7); Eosinophils % (A) 1 %; Lymphocytes # (A) 1.1 k/uL (1.0-4.8); Lymphocytes % (A) 14 %; MCH 32.2 pg (25.0-35.0); MCHC 35.6 g/dL (31.0-37.0); MCV 90.3 fL (80.0-100.0); Mean Platelet Volume 9.2; Monocytes # (A) 0.4 k/uL (0-1.0); Monocytes % (A) 5 %; Neutrophils # (A) 6.2 k/uL (1.3-7.7); Neutrophils % (A) 79 %; Platelet Count 160 k/uL (150-450); RBC 1.99 m/uL (3.80-5.40); RDW 13.3 % (11.5-15.5); WBC 7.9 k/uL (3.8-10.6)
[2022-02-24] MEDS: SENNOSIDES-DOCUSATE SODIUM 1 EACH TAB PO SCH ×2 (07:56→20:32)
[2022-02-24 16:04] VITALS: RESP 16
[2022-02-25 07:13] LABS: Basophils % (A) 0 %; Eosinophils # (A) 0.1 k/uL (0-0.7); Eosinophils % (A) 1 %; Lymphocytes # (A) 1.3 k/uL (1.0-4.8); Lymphocytes % (A) 21 %; MCH 31.2 pg (25.0-35.0); MCHC 34.2 g/dL (31.0-37.0); MCV 91.3 fL (80.0-100.0); Mean Platelet Volume 8.8; Monocytes # (A) 0.3 k/uL (0-1.0); Monocytes % (A) 5 %; Neutrophils # (A) 4.3 k/uL (1.3-7.7); Neutrophils % (A) 70 %; Platelet Count 202 k/uL (150-450); RBC 1.95 m/uL (3.80-5.40); RDW 13.8 % (11.5-15.5); WBC 6.2 k/uL (3.8-10.6)
[2022-02-25 07:17] LABS: HGB 6.1 gm/dL (11.4-16.0)
[2022-02-25 07:18] LABS: HCT 17.8 % (34.0-46.0)
[2022-02-25] MEDS: IBUPROFEN 600 MG TAB PO PRN (07:39)
[2022-02-25] MEDS: SENNOSIDES-DOCUSATE SODIUM 1 EACH TAB PO SCH (07:39)
--- NOTE | 2022-02-25 08:24 | P.PNOBGVD ---
Subjective - Subjective Principal diagnosis: Status post total vaginal delivery with hemorrhage pp day1 Interval history: Patient's hemoglobin started at 13 to go down to 8 and then 6.4. After the backward balloon had been placed the initial first hour of blood loss was 35 mL through the balloon and 45 mL on a pad. After this she stopped bleeding and only had scant blood on the pad and 10 mL of blood out for the balloon over the next several hours. Urine output was slow but increasing. I left the balloon in several hours and at 5 AM I removed 100 mL then rechecked her fundus and her bleeding which remained scant. I took 100 more cc out of the balloon at 6 AM and then finished removing the balloon at 7 AM. I felt this slow release process with limited her bleeding. I did consult the patient about a blood transfusion again today. She continues to re-fluid blood as she is no longer hemorrhaging. I explained to her that she lost have her blood volume and anemia comes with its own set of health concerns. Patient continues to refuse blood at this time. Patient reports: Reports appetite normal, Reports pain well controlled [place]: doing well Objective - Latest Vital Signs Latest vital signs: Vital Signs Temp Pulse Resp BP Pulse Ox 02/25/22 03:54 98 F 97 16 94/59 98 02/25/22 00:00 97.8 F 110 H 16 96/60 99 02/24/22 17:25 98 16 98/62 100 02/24/22 16:02 98.3 F 98 16 101/67 100 02/24/22 14:30 98.1 F 101 H 15 99/69 100 02/24/22 12:30 95 16 102/68 100 02/24/22 11:30 105 H 17 100/67 98 02/24/22 10:31 87 16 97/64 100 02/24/22 09:35 98.4 F 100 16 102/66 100 02/24/22 08:25 90 15 87/51 100 Intake and Output 02/24/22 02/25/22 02/25/22 22:59 06:59 14:59 Output Total 1050 760 Balance -1050 -760 Output: Urine 1050 760 Uretheral (Wilkins) 400 Other: # Voids 1 - Exam Lungs: bilateral: normal Chest: Normal S1, Normal S2 Extremities: Present: normal Abdomen: Present: normal appearance, soft Uterus: Present: normal, firm - Labs Labs: Abnormal Lab Results - Last 24 Hours (Table) 02/25/22 Range/Units 05:54 RBC 1.95 L (3.80-5.40) m/uL Hgb 6.1 L* (11.4-16.0) gm/dL Hct 17.8 L* (34.0-46.0) % Assessment and Plan (1) Encounter for induction of labor Current Visit: Yes Status: Resolved Code(s): Z34.90 - ENCNTR FOR SUPRVSN OF NORMAL , UNSP, UNSP TRIMESTER SNOMED Code(s): 795786583 (2) Normal vaginal delivery Current Visit: No Status: Acute Code(s): O80 - ENCOUNTER FOR FULL-TERM UNCOMPLICATED DELIVERY SNOMED Code(s): 37923250 (3) Acute blood loss anemia Current Visit: Yes Status: Acute Code(s): D62 - ACUTE POSTHEMORRHAGIC ANEMIA SNOMED Code(s): 680236979 (4) hemorrhage Current Visit: Yes Status: Acute Code(s): O72.1 - OTHER IMMEDIATE HEMORRHAGE SNOMED Code(s): 84798990 Plan: 1. Will DC Wilkins catheter when the patient is able to ambulate 2. Recheck a CBC tomorrow morning 3. Continue to monitor closely
--- NOTE | 2022-02-25 08:27 | P.DS ---
Providers Date of admission: 02/23/22 06:08 Expected date of discharge: 02/25/22 Attending physician: Sherry Maria Primary care physician: Stated None - Discharge Diagnosis(es) (1) Encounter for induction of labor Current Visit: Yes Status: Resolved (2) Normal vaginal delivery Current Visit: No Status: Acute (3) Acute blood loss anemia Current Visit: Yes Status: Acute (4) hemorrhage Current Visit: Yes Status: Acute Hospital Course: Patient presented for induction of labor. She underwent a normal vaginal delivery. after her recovery she started to have bleeding. She had hemorrhage from uterine atony. It responded to Methergine and Cytotec and about 3 balloon. She ended up with acute blood loss anemia of 6.1 down from 13. Patient continues to refuse a blood transfusion that she's been thoroughly counseled. She said she feels better today she is able to ambulate and void without problems she is tolerating regular diet passing flatus. She denies nausea, vomiting, chest pain, shortness of breath, calf pain, headache, dizziness or shortness of breath with standing. Patient will be discharged home day #2 in stable condition. I want to see her in 1 week to check her blood pressure pulse and a spot check hemoglobin. Plan - Discharge Summary New Discharge Prescriptions: New Ibuprofen [Motrin] 600 mg PO Q6HR PRN #30 tab PRN Reason: Mild Pain (Scale 1 To 3) No Action Multivitamins, Thera [Multivitamin (formulary)] 1 tab PO DAILY Discharge Medication List Multivitamins, Thera [Multivitamin (formulary)] 1 tab PO DAILY 09/03/16 [History] Ibuprofen [Motrin] 600 mg PO Q6HR PRN #30 tab 02/25/22 [Rx] Follow up Appointment(s)/Referral(s): Sherry Maria DO [Doctor of Osteopathic Medicine] - 1 Week (PP 04/13/2022 @11:15) Discharge Disposition: HOME SELF-CARE
[2022-02-25 08:36] VITALS: BP 94/58; PULSE 88; TEMP 98
[2022-02-25 14:07] LABS: HCT 17.9 % (34.0-46.0); HGB 6.4 gm/dL (11.4-16.0)
== END 2022-02-25 15:44 | disposition home or self-care (01) | DRG 768 ==
LOC: 4FBP 06:08
PROVIDERS: ADMIT Obstetrics & Gynecology; ATTEND Obstetrics & Gynecology
PROC: 0W3R7ZZ Control Bleeding in Genitourinary Tract, Via Natural or Artificial Opening (ICD-10-PCS; principal; 2022-02-23 19:49)
PROC: 10907ZC Drainage of Amniotic Fluid, Therapeutic from Products of Conception, Via Natural or Artificial Opening (ICD-10-PCS; principal; 2022-02-23 19:49)
PROC: 3E033VJ Introduction of Other Hormone into Peripheral Vein, Percutaneous Approach (ICD-10-PCS; principal; 2022-02-23 19:49)
PROC: 10E0XZZ Delivery of Products of Conception, External Approach (ICD-10-PCS; principal; 2022-02-23 19:49)
DX: O69.81X0 Labor and delivery complicated by cord around neck, without compression, not applicable or unspecified (principal); O72.1 Other immediate postpartum hemorrhage; D62 Acute posthemorrhagic anemia; O90.81 Anemia of the puerperium; Z3A.41 41 weeks gestation of pregnancy; Z37.0 Single live birth
CPT/HCPCS: 85025; 85027; 86850; 86900; 86901

== ENCOUNTER → 2023-12-09 | Outpatient (CLI) | payer BC, OTHER ==
--- NOTE | 2023-12-09 16:36 | US ---
EXAMINATION TYPE: US abdomen limited DATE OF EXAM: 12/09/2023 COMPARISON: NONE CLINICAL INDICATION: Female, 33 years old with history of R10.9 ABD PAIN; pain near umbilicus, LLQ fo r 6 weeks. patient denies any bulge TECHNIQUE: Grayscale imaging in the area of patient's concern, LLQ, FINDINGS: scanned patient's area of concern, LLQ, unable to visualize any abnormality by ultrasound at this time no organizing fluid collection mass. IMPRESSION: No evidence for acute process, organizing fluid collection or mass. [facility], , 12/09/2023 4:33 PM
== END | disposition home or self-care (01) ==
LOC: RADUSWWP 14:50
PROVIDERS: ATTEND Family Medicine
DX: R10.9 Unspecified abdominal pain (principal)
CPT/HCPCS: 76705